=== PATIENT | female | born 1990 | race Two or more races ===

== ENCOUNTER 2016-12-06 21:41 | Emergency (ER) | payer BC, MEDICAID ==
--- NOTE | ~2016-12-06 | ER ---
PATIENT'S NAME: SANDRA SULTANA [facility] AGE: 26 Y [address] ROOM: [place] [address] LOCATION: [facility] ADMIT DATE: 12/06/2016 ER/Outpatient Report DISCHARGE DATE: 12/06/2016 FAMILY PHYSICIAN: Linden Drew MD ATTENDING PHYSICIAN: Rachele Jefferson HISTORY OF PRESENT ILLNESS: This is a 26-year-old female, who presents today with chief complaint of sort of right-sided lower back pain that radiates down her leg, into her knee. Says that she feels like the pain is really severe down in her knee, and her right knee is weak. Denies any recent trauma. She says that she had been bending down to give someone a haircut recently about 2 days ago, and that is when this all started. She is 20 weeks' with LMP on July 14, 2016, but she denies any vaginal bleeding. No discharge. No urinary symptoms. No other complaints. She saw Dr. Drew in the office today and was given a script for Flexeril, which she has been taking, but she says it is not helping. The pain is like right lower back and sometimes it radiates around to the front, like the right upper abdomen, but mostly it is in her right hip and going down to her knee. She has not tried anything else besides the Flexeril. PAST MEDICAL HISTORY: Insulin-dependent diabetes and hypothyroidism. HISTORY: She is 20 weeks. LMP was on July 14, 2016 and estimated due date is on April 23, 2017. She is G2, P0-1-0-0. History of a miscarriage 5 years ago. MEDICATIONS: Please see a med list. ALLERGIES: NONE. SOCIAL HISTORY: She does not smoke, drink, or use any drugs. REVIEW OF SYSTEMS: Reviewed by me and negative with the exception of those discussed in the HPI. PHYSICAL EXAMINATION: VITAL SIGNS: Her heart rate is 82, her respiratory rate is 16, temp is 98.5, blood pressure is 105/58, and sats are 98% on room air. GENERAL: The patient is brought in by a wheelchair. She looks uncomfortable. It is worse when she moves it seems. She is speaking in full sentences. She PATIENT'S NAME: SANDRA SULTANA [facility] AGE: 26 Y [address] ROOM: [place], [place] [address] LOCATION: [facility] ADMIT DATE: 12/06/2016 ER/Outpatient Report DISCHARGE DATE: 12/06/2016 FAMILY PHYSICIAN: Linden Drew MD ATTENDING PHYSICIAN: Rachele Jefferson is not lethargic. She is not actively vomiting or retching. HEART: Regular rate and rhythm. LUNGS: Her lung sounds sound clear. ABDOMEN: She has no right lower quadrant tenderness. No left lower quadrant tenderness. Some mild right upper quadrant tenderness but negative Beyer's. No left upper quadrant tenderness. No CVA tenderness bilaterally. A bedside ultrasound was done. I looked at her gallbladder and I pushed directly on it, she did not have a sonographic Beyer's. I do not see any gallstones in the gallbladder. There is no pericholecystic fluid or gallbladder wall thickening. I also assessed her lower abdomen. She has an IUP with a movement and heart rate of about 140. EXTREMITIES: She has no edema. No swelling. Nontender. NEURO: She has decreased strength in that right secondary to pain when she sort of lifts out against, but she has intact sensation in bilateral lower extremities, and dorsiflexion and plantar flexion of her ankles are within normal limits bilaterally. EMERGENCY DEPARTMENT COURSE: I think this is mostly sciatica. She does not have any new neuro findings, and she says it was worse after she was bending down and giving someone haircut. We gave her a shot of morphine, and the patient says she felt a lot better, although, the pain was still there. I will give her a script for some [place] and Percocet, and I told her she needs to follow up with Dr. Drew in 2 to 3 days if this does not improve. I also told her if she has very concerning symptoms like nausea, vomiting, fever, like loss of vaginal fluid or vaginal bleeding, she needs to follow up with her doctor sooner. She understands reasons back to the ER sooner. IMPRESSION: Right-sided lower back pain. RACHELE JEFFERSON MD CAW/modl /[id number] d: 12/07/16346 t: 12/08/161953, OUTPATIENT REPORT
== END 2016-12-06 23:20 | disposition disaster alternative care site (69) ==
LOC: GMED 21:41
DX: O99.89 Other specified diseases and conditions complicating pregnancy, childbirth and the puerperium (principal); M54.5 Low back pain; O24.912 Unspecified diabetes mellitus in pregnancy, second trimester; O99.282 Endocrine, nutritional and metabolic diseases complicating pregnancy, second trimester; E03.9 Hypothyroidism, unspecified; Z79.4 Long term (current) use of insulin; Z3A.20 20 weeks gestation of pregnancy; Z79.899 Other long term (current) drug therapy
CPT/HCPCS: J2270